=== PATIENT | male | born 2005 | race Caucasian/White ===

== ENCOUNTER 2023-08-01 12:37 | Emergency (ER) | payer OTHER ==
[~2023-08-01] VITALS: Ht 182.9 cm; Wt 63.5 kg
[2023-08-01 12:58] VITALS: BP 158/67; PULSE 98; RESP 18; TEMP 97.8; O2SAT 98
== END 2023-08-01 13:33 | disposition home or self-care (01) ==
LOC: ER 12:37
DX: S61.412A Laceration without foreign body of left hand, initial encounter (principal); X58.XXXA Exposure to other specified factors, initial encounter; Y93.89 Activity, other specified; Y92.89 Other specified places as the place of occurrence of the external cause; Y99.8 Other external cause status
CPT/HCPCS: 12001; 99282